=== PATIENT | female | born 1950 | race Caucasian/White ===

== ENCOUNTER 2023-11-30 10:29 | Day surgery (SDC) | payer MEDICARE, BC, SELFPAY ==
[2023-11-30] VITALS (15 sets, daily range): BP systolic 102–146; BP diastolic 43–107; PULSE 71–91; RESP 12–18; TEMP 36.3–37.2; O2SAT 93–98; BMI 37.7
--- NOTE | 2023-11-30 10:36 | PM.IMHP1 ---
Hospitalist- H&P: HPI History of Present Illness Date Seen: 12/06/23 Chief complaint: Appendectomy Narrative: ADMISSION HISTORY AND PHYSICAL - HOSPITALIST Chief Complaint: acute appy HPI: Patient is a 73-year-old recent with a significant medical history of insulin-dependent diabetes, coronary artery disease, ALEXI treated with CPAP and hypertension who reports mild intermittent right lower quadrant pain over the last 2 years, never severe enough to seek medical attention. However in the last few days the pain has returned and is more intense. She went to see her PCP yesterday, Dr. Warren. He ordered labs and a CT of her abdomen and pelvis. The CT abdomen pelvis was done this morning and those results were communicated from Dr. Warren to our general surgeon Dr. Santizo. Evidence of acute early appendicitis noted on CT. CT also showed mild fatty liver and stable pulmonary nodule. Patient states that she slept pretty good overnight. No fever, no vomiting, no nausea. No chest pain. No diaphoresis. No acute shortness of breath. She ate lasted about 11:00 p.m. last night. She did not take any morning meds. CT abdomen pelvis with contrast done today 11/30/2023 IMPRESSION: Acute tip appendicitis. No perforation. No calcified appendicolith. From Dr. Warren on 11/29/2023: Ms. Torres is a 73 y.o. female presents today with right flank pain. She reports having perhaps 3 episodes per year over the past 2 years. This episode began Sunday, 4 days ago. Sunday was the worst day, and it has gradually improved since then. Now describes a dull ache diffusely in the right flank area. Pain will seem to radiate towards the right inguinal area at times. Provoked by movement. Relieved somewhat by sitting quietly. Also has had a feeling of muscle spasms in the right lateral gluteal area. No fever, sweats, or chills. Has had mild nausea but no vomiting. No diarrhea or constipation. No blood in her stools or black tarry stools. No urinary tract symptoms. No blood in her urine. 11/28 labs at [facility]: Total white blood cell count 11.8. Hemoglobin 10.9. Normal platelets. Complete metabolic panel is still pending from clinic visit yesterday Urine is clear with small blood and trace LE. Culture is pending. Creatinine 1.3 CODE STATUS: FULL CODE EMERGENCY CONTACT PLAN: Primary Contact Name Dani Torres Rel To Pat Son CELL Also daughter, Melanie Britton, is bedside this morning I've updated the [facility], medications and allergies in the [facility] tabs. INVESTIGATIONS: LABS/MICRO/ECG/IMAGING Preop ECG Preop one-view chest x-ray Preop labs REVIEW OF SYSTEMS: 12-point ROS completed with patient and negative unless otherwise stated in HPI or below. PHYSICAL EXAM: CONSTITUTIONAL: Conversive, good historian. A/O. Knows setting and context. No acute distress. VITAL SIGNS: see record. HEENT: Normocephalic, atraumatic. PERRL, EOMI, conjunctivae pink, no scleral icterus. Ears and nose externally normal. Pharynx normal. NECK: No JVD. No carotid bruit, no thyromegaly, no adenopathy. CHEST: Clear to auscultation bilaterally HEART: S1 and S2 normal. No harsh murmurs. Edema 1+ ABDOMEN: Morbidly obese. Mild tenderness to the lateral right quadrant MUSCULOSKELETAL: No gross joint deformity or swelling. NEURO: Cranial nerves intact. Grossly intact. No asymmetric findings. SKIN: No rashes, petechiae, concerning changes PSYCHIATRIC: Euthymic. ADMIT TO MEDSURG: FLOOR CARE DVT: SCDs GI: NPO, advanced diet after surgery as tolerated and per surgery orders Time spent: Today I spent 75 minutes seeing the patient, discussing the patient with ER staff, reviewing [facility] and [facility] notes/diagnostics, discussing the care plan with our care time that includes social work, PT/OT, pharmacy, RT, senior care and documenting my impressions and plan in the medical record. [facility] Medical History (Updated 11/30/23 @ 11:11 by Marissa Nash MD) CKD (chronic kidney disease) stage 3, GFR 30-59 ml/min ?N18.30 - Chronic kidney disease, stage 3 unspecified (ICD-10) Fatty liver ?K76.0 - Fatty (change of) liver, not elsewhere classified (ICD-10) HTN (hypertension) ?I10 - Essential (primary) hypertension (ICD-10) Morbid obesity with BMI of 40.0-44.9, adult ?E66.01 - Morbid (severe) obesity due to excess calories (ICD-10) ?Z68.41 - Body mass index [BMI] 40.0-44.9, adult (ICD-10) Hyperlipidemia ?E78.5 - Hyperlipidemia, unspecified (ICD-10) Gout ?M10.9 - Gout, unspecified (ICD-10) Nephrolithiasis ?N20.0 - Calculus of kidney (ICD-10) 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, with long-term current use of insulin ?E08.22 - Diabetes mellitus due to underlying condition with diabetic chronic kidney disease (ICD-10) ?Z79.4 - intermodal truck driver (current) use of insulin (ICD-10) Nickel allergy ?Z91.09 - Other allergy status, other than to drugs and biological substances (ICD-10) ALEXI (obstructive sleep apnea) ?G47.33 - Obstructive sleep apnea (adult) (pediatric) (ICD-10) Migraine ?G43.909 - Migraine, unspecified, not intractable, without status migrainosus (ICD-10) Surgical History (Updated 11/30/23 @ 11:11 by Marissa Nash MD) History of left heart catheterization ?Z98.890 - Other specified postprocedural states (ICD-10) History of heart artery stent ?Z95.5 - Presence of coronary angioplasty implant and graft (ICD-10) H/O wisdom tooth extraction ?K08.409 - Partial loss of teeth, unspecified cause, unspecified class (ICD-10) H/O cystoscopy ?Z98.890 - Other specified postprocedural states (ICD-10) H/O arthroscopy of shoulder ?Z98.890 - Other specified postprocedural states (ICD-10) History of bilateral tubal ligation ?Z98.51 - Tubal ligation status (ICD-10) Family History (Updated 11/30/23 @ 11:13 by Marissa Nash MD) Daughter Breast cancer Mother Diabetes Father Diabetes Heart disease Sister Diabetes Brother Heart disease Social History (Updated 11/30/23 @ 11:14 by Marissa Nash MD) Narrative: 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 Son still farms the land. in May 24. Has seven children. nonsmoker since early . rare beer. What is your current living situation?: I presently have a place to live Problems where you live: no known problems Problems where you live details: n/a In the past 12 months, utilities in danger of being shut off: no In past 12 months, lack of transportation kept you from medical appts, meetings, work, or getting things needed for daily living: no In the past 12 mos, have been you worried that your food would run out before you had money to buy more?: never true In the past 12 mos, the food you bought just didn't last and you didn't have money to buy more?: never true Highest level of school completed/degree received: Associate degree: academic program Smoking Status: Former smoker Do you use any of these nicotine containing products: None How often do you have a drink containing alcohol: 2-4 times a month Alcohol type: beer How many standard drinks containing alcohol do you have on a typical day: 1 or 2 How often do you have six or more drinks on one occasion: Never AUDIT-C Alcohol total score: 2 Non-prescribed substance use: denies use Caffeine: No How often does anyone, including family, friends and others, physically hurt you: never How often does anyone, including family, friends and others, insult or talk down to you: never How often does anyone, including family, friends and others, threaten you with harm: never How often does anyone, including family, friends and others, scream or curse at you: never service: No Meds Home Medications and Allergies Home Medications ?Medication ?Instructions ?Recorded ?Confirmed ?Type acetaminophen 325 mg tablet 325 - 650 mg PO Q6H PRN pain 11/30/23 11/30/23 History (Pharbetol) aspirin 81 mg tablet,delayed 81 mg PO DAILY 11/30/23 11/30/23 History release (Adult Aspirin Regimen) cetirizine 10 mg tablet (24Hour 10 mg PO DAILY PRN 11/30/23 11/30/23 History Allergy) cholecalciferol (vitamin D3) 50 50 mcg PO DAILY 11/30/23 11/30/23 History mcg (2,000 unit) tablet cyanocobalamin (vitamin B-12) 1,000 mcg PO DAILY 11/30/23 11/30/23 History 1,000 mcg tablet febuxostat 80 mg tablet 80 mg PO DAILY 11/30/23 11/30/23 History furosemide 20 mg tablet 20 mg PO QAM 11/30/23 11/30/23 History ibuprofen 600 mg tablet (IBU) 600 mg PO Q6H PRN pain 11/30/23 11/30/23 History insulin glargine 100 unit/mL 100 unit subcut BID 11/30/23 11/30/23 History subcutaneous solution (Lantus U-100 Insulin) lisinopril 20 mg tablet 20 mg PO DAILY 11/30/23 11/30/23 History metformin 1,000 mg tablet 1,000 mg PO BIDWM 11/30/23 11/30/23 History metoprolol succinate 25 mg 25 mg PO DAILY 11/30/23 11/30/23 History tablet,extended release 24 hr nitroglycerin 0.4 mg sublingual 0.4 mg sublingual Q5M PRN 11/30/23 11/30/23 History tablet potassium citrate 10 mEq (1,080 20 meq PO DAILY 11/30/23 11/30/23 History mg) tablet,extended release rosuvastatin 20 mg tablet 20 mg PO HS 11/30/23 11/30/23 History Allergies Allergy/AdvReac Type Severity Reaction Status Date / Time allopurinol Allergy Unknown Unverified 11/30/23 10:39 atorvastatin AdvReac Intermediate Unverified 11/30/23 10:39 glipizide AdvReac Intermediate Unverified 11/30/23 10:39 latex AdvReac Intermediate Unverified 11/30/23 10:39 nickel AdvReac Intermediate Unverified 11/30/23 10:39 Assessment and Plan Assessment and plan (1) Acute appendicitis: Problem comment: -Dr. Santizo accepting direct admit for lap appy 11/30/23 CT abdomen pelvis with contrast done today 11/30/23 IMPRESSION: Acute tip appendicitis. No perforation. No calcified appendicolith. Status: Acute (2) CAD (coronary artery disease): Problem comment: -EKG on admission reviewed -2015 - chest pain/abnl stress test. Mid LAD lesion - s/p 1 REGINE -mild to moderate disease in distal cardiac vessels -daily asp, beta rey, statin, acei -stress echo in August 2022 done for [facility]MENTA Final Impressions: 1. Technically limited exam despite the use of contrast. Test sensitivity reduced by image quality. 2. See separate report for stress EKG interpretation. 3. Normal stress echocardiogram without inducible ischemia by imaging. 4. With exercise, the LV end-systolic dimension decreased and LVEF increased appropriately. 5. Normal blood pressure and heart rate response to exercise. Target heart rate was achieved. 6. Reduced functional status for age. Able to reach target HR within 2 minutes of exercise [total duration 2 minutes and 8 seconds]. 7. Baseline LVEF 55-60%. 8. No significant valvular abnormalities by limited Doppler evaluation [very limited evaluation]. 9. During stress exam the patient developed shortness of breath. Status: Acute (3) 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, with long-term current use of insulin: Problem comment: -A1C 5.7 (Jul 2023) -Creatinine 1.3 (October 2023) baseline is 1.1 - 1.5. (GFR 40's) -metformin and insulin (100 units Lantus BID) (will hold metformin perioperatively) Status: Acute (4) ALEXI (obstructive sleep apnea): Problem comment: wears CPAP Status: Acute (5) CKD (chronic kidney disease) stage 3, GFR 30-59 ml/min: Problem comment: 11/29/23 - Creat 1.5 Status: Acute (6) HTN (hypertension): Problem comment: -home regimen: lisinopril, metoprololol Status: Acute (7) COPD (chronic obstructive pulmonary disease): Problem comment: -CXR reviewed upon admission -hasn't smoked in 30 years -no COPD specific meds Status: Acute (8) Morbid obesity with BMI of 40.0-44.9, adult: Status: Acute (9) Fatty liver: Status: Acute
--- NOTE | 2023-11-30 10:44 | CRLHL7_ITS ---
For Patients: As a result of the Cures Act, medical imaging exams and procedure reports are released immediately into your electronic medical record. You may view this report before your referring provider. If you have questions, please contact your health care provider. INDICATION: PRE OP PORTABLE CHEST TECHNIQUE: Chest 1 view COMPARISON: None FINDINGS: Cardiovascular and mediastinum: Mild tortuosity distal thoracic aorta. Lungs and pleural spaces: Lungs are clear. No sign of infiltrate or mass. No sign of pleural effusion. No pneumothorax. Bones and soft tissues: Mild degenerative changes both shoulders. IMPRESSION: No acute findings. Dictated by Mtich Piper MD @ 12/03/2023 9:55:29 AM (Electronically Signed)
[2023-11-30 11:13] LABS: HCO3 VBG 28 mmol/L (21-28); PCO2 VBG 50 mmHG (40-50); PO2 VBG 30.6 mmHG (25-47); pH VBG 7.356 (7.32-7.43)
[2023-11-30 11:14] LABS: Basophils Absolute Auto 0.01 K/uL (0.00-0.30); Basophils Percent Auto 0.1 % (0.0-3.0); Eosinophils Absolute Auto 0.19 K/uL (0.00-0.50); Eosinophils Percent Auto 2.1 % (0.0-7.0); Hematocrit 34.3 % (33.0-51.0); Hemoglobin* 10.7 gm/dL (12.0-16.0); Immature Granulocytes Abs Auto 0.05 K/uL (0.00-0.30); Immature Granulocytes Pct Auto 0.5 %; Lymphocytes Percent Auto 22.7 % (20-44); Mean Corpuscular HGB Conc 31 gm/dL (32-36); Mean Corpuscular Hemoglobin 28 pg (26-34); Mean Corpuscular Volume 89 fL (80-100); Monocytes Percent Auto 9.1 % (0.0-11.0); Neutrophils Absolute Auto 6.07 K/uL (1.7-7.0); Neutrophils Percent Auto 65.5 % (42.0-72.0); Platelet Count* 212 K/uL (140-440); RDW Coefficient of Variation % 13.8 % (11.5-15.5); Red Blood Count 3.86 m/uL (4.00-5.20); White Blood Count* 9.26 K/uL (4.50-11.00)
[2023-11-30 11:16] LABS: Slide Review Reflex No
[2023-11-30 11:37] LABS: Albumin* 4.7 g/dL (3.3-5.0); Chloride* 107 mmol/L (96-114)
[2023-11-30 11:38] LABS: Potassium* 4.8 mmol/L (3.6-5.1); Sodium* 142 mmol/L (135-149)
[2023-11-30 11:39] LABS: INR 1.06 (0.91-1.10); Prothrombin Time 14.5 Seconds
[2023-11-30 11:40] LABS: Estimated Glomerular Filt Rate 60 ml/min
[2023-11-30 11:41] LABS: Alanine Aminotransferase* 35 U/L (4-35); Alkaline Phosphatase* 73 U/L (40-150); Anion Gap 6 mEq/L (7-15); Aspartate Amino Transferase* 49 U/L (12-35); Bilirubin Total* 0.6 mg/dL (0.1-1.5); Blood Urea Nitrogen* 27 mg/dL (7-30); Calcium* 9.7 mg/dL (8.4-10.6); Carbon Dioxide* 29 mmol/L (20-32); Glucose* 76 mg/dL (60-115); Lipase* 57 U/L (23-300); Total Protein* 7.6 g/dL (6.0-8.3)
[2023-11-30 11:43] LABS: C Reactive Protein* 1.7 mg/dL (0.5-1.0)
[2023-11-30 11:45] LABS: Hemoglobin A1C* 7.7 % (0-5.6)
[2023-11-30 11:53] LABS: Troponin I* 0.01 ng/mL (0.01-0.04)
[2023-11-30 11:58] LABS: Procalcitonin* 0.22 ng/mL (<0.50)
[2023-11-30 11:59] LABS: NT Pro B Type NatriureticPept* 40 pg/mL
[2023-11-30] MEDS: PIPERACILLIN/TAZOBACTAM 3.375 GM in 0.9 % SODIUM CHLORIDE Mini-bag 100 ML IVPB (12:23)
[2023-11-30] MEDS: DEXTROSE 50 % SYRINGE IVP (13:29)
[2023-11-30] MEDS: LACTATED RINGERS 1000 ML 1,000 ML 75 ML IV (13:38)
[2023-11-30] MEDS: 5 % DEXTROSE/0.9% SOD CHLORIDE 1,000 ML 75 ML IV (13:50)
--- NOTE | 2023-11-30 14:51 | PC.NURSE ---
End of Shift: Patient admitted to med surg, then went to the OR at roughly 1400. VSS, afebrile. Patient denies pain. Blood sugar was taken approximately 1300 which showed she was at 56, gave her 12.5mg of D50, rechecked her blood sugar 15 minutes later, which then showed she was at 106.
--- NOTE | 2023-11-30 15:00 | W.ANESCHARGE ---
Anesthesia Charges Start Date/Time Anesthesia Start Date: 11/30/23 Anesthesia Start Time: 14:11 Stop Date/Time Anesthesia Stop Date: 11/30/23 Anesthesia Stop Time: 15:26 Summary Extremes of Age - Over 70 or under 1: MDA
[2023-11-30] MEDS: BUPIVACAINE 0.25% 30 ML INJECTION (15:06)
--- NOTE | 2023-11-30 15:40 | W.ANESCHARGE ---
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
--- NOTE | 2023-11-30 15:51 | P.GSCN_ITS ---
History of Present Illness Consult details Date Seen: 11/30/23 Consult date: 11/30/23 Narrative: The patient is a 73-year-old female who presented to clinic yesterday with right-sided abdominal pain. She stated that approximately 5 days ago she developed an ache on her right side. Sunday she noted that it was worse with standing. It became somewhat better however it returned the following day. She had some nausea, however she states that her daily potassium makes her nauseated so she thought it was related to that. She has not had any fevers. She states that it is worse with movement. She has had no urinary symptoms or change in bowel habits. Since the pain persisted she went in to be seen. She was found to have an elevated white blood cell count at 11.8. Because of her late in the day visit, a CT scan was ordered for this morning. This came back showing appendicitis. She was admitted to the hospital for appendectomy. Upon further thought, she thinks that she may have had symptoms like this previously. [facility] Medical History (Updated 11/30/23 @ 11:11 by Marissa Nash MD) CKD (chronic kidney disease) stage 3, GFR 30-59 ml/min ?N18.30 - Chronic kidney disease, stage 3 unspecified (ICD-10) Fatty liver ?K76.0 - Fatty (change of) liver, not elsewhere classified (ICD-10) HTN (hypertension) ?I10 - Essential (primary) hypertension (ICD-10) Morbid obesity with BMI of 40.0-44.9, adult ?E66.01 - Morbid (severe) obesity due to excess calories (ICD-10) ?Z68.41 - Body mass index [BMI] 40.0-44.9, adult (ICD-10) Hyperlipidemia ?E78.5 - Hyperlipidemia, unspecified (ICD-10) Gout ?M10.9 - Gout, unspecified (ICD-10) Nephrolithiasis ?N20.0 - Calculus of kidney (ICD-10) 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, with long-term current use of insulin ?E08.22 - Diabetes mellitus due to underlying condition with diabetic chronic kidney disease (ICD-10) ?Z79.4 - exterminator helper termite (current) use of insulin (ICD-10) Nickel allergy ?Z91.09 - Other allergy status, other than to drugs and biological substances (ICD-10) ALEXI (obstructive sleep apnea) ?G47.33 - Obstructive sleep apnea (adult) (pediatric) (ICD-10) Migraine ?G43.909 - Migraine, unspecified, not intractable, without status migrainosus (ICD-10) Surgical History (Updated 11/30/23 @ 11:11 by Marissa Nash MD) History of left heart catheterization ?Z98.890 - Other specified postprocedural states (ICD-10) History of heart artery stent ?Z95.5 - Presence of coronary angioplasty implant and graft (ICD-10) H/O wisdom tooth extraction ?K08.409 - Partial loss of teeth, unspecified cause, unspecified class (ICD- 10) H/O cystoscopy ?Z98.890 - Other specified postprocedural states (ICD-10) H/O arthroscopy of shoulder ?Z98.890 - Other specified postprocedural states (ICD-10) History of bilateral tubal ligation ?Z98.51 - Tubal ligation status (ICD-10) Family History (Updated 11/30/23 @ 11:13 by Marissa Nash MD) Daughter Breast cancer Mother Diabetes Father Diabetes Heart disease Sister Diabetes Brother Heart disease Social History (Updated 11/30/23 @ 11:14 by Marissa Nash MD) Narrative: Lives on a farm in [place]. Son still farms the land. in May 24. Has seven children. nonsmoker since early . rare beer. What is your current living situation?: I presently have a place to live Problems where you live: no known problems Problems where you live details: n/a In the past 12 months, utilities in danger of being shut off: no In past 12 months, lack of transportation kept you from medical appts, meetings, work, or getting things needed for daily living: no In the past 12 mos, have been you worried that your food would run out before you had money to buy more?: never true In the past 12 mos, the food you bought just didn't last and you didn't have money to buy more?: never true Highest level of school completed/degree received: Associate degree: academic program Smoking Status: Former smoker Do you use any of these nicotine containing products: None How often do you have a drink containing alcohol: 2-4 times a month Alcohol type: beer How many standard drinks containing alcohol do you have on a typical day: 1 or 2 How often do you have six or more drinks on one occasion: Never AUDIT-C Alcohol total score: 2 Non-prescribed substance use: denies use Caffeine: No How often does anyone, including family, friends and others, physically hurt you : never How often does anyone, including family, friends and others, insult or talk down to you: never How often does anyone, including family, friends and others, threaten you with harm: never How often does anyone, including family, friends and others, scream or curse at you: never service: No Meds Home Medications and Allergies Home Medications ?Medication ?Instructions ?Recorded ?Confirmed ?Type acetaminophen 325 mg tablet 325 - 650 mg PO Q6H PRN pain 11/30/23 11/30/23 History (Pharbetol) aspirin 81 mg tablet,delayed 81 mg PO DAILY 11/30/23 11/30/23 History release (Adult Aspirin Regimen) cetirizine 10 mg tablet (24Hour 10 mg PO DAILY PRN 11/30/23 11/30/23 History Allergy) cholecalciferol (vitamin D3) 50 50 mcg PO DAILY 11/30/23 11/30/23 History mcg (2,000 unit) tablet cyanocobalamin (vitamin B-12) 1,000 mcg PO DAILY 11/30/23 11/30/23 History 1,000 mcg tablet febuxostat 80 mg tablet 80 mg PO DAILY 11/30/23 11/30/23 History furosemide 20 mg tablet 20 mg PO QAM 11/30/23 11/30/23 History ibuprofen 600 mg tablet (IBU) 600 mg PO Q6H PRN pain 11/30/23 11/30/23 History insulin glargine 100 unit/mL 100 unit subcut BID 11/30/23 11/30/23 History subcutaneous solution (Lantus U-100 Insulin) lisinopril 20 mg tablet 20 mg PO DAILY 11/30/23 11/30/23 History metformin 1,000 mg tablet 1,000 mg PO BIDWM 11/30/23 11/30/23 History metoprolol succinate 25 mg 25 mg PO DAILY 11/30/23 11/30/23 History tablet,extended release 24 hr nitroglycerin 0.4 mg sublingual 0.4 mg sublingual Q5M PRN 11/30/23 11/30/23 History tablet potassium citrate 10 mEq (1,080 20 meq PO DAILY 11/30/23 11/30/23 History mg) tablet,extended release rosuvastatin 20 mg tablet 20 mg PO HS 11/30/23 11/30/23 History Allergies Allergy/AdvReac Type Severity Reaction Status Date / Time allopurinol Allergy Unknown Unverified 11/30/23 10:39 atorvastatin AdvReac Intermediate Unverified 11/30/23 10:39 glipizide AdvReac Intermediate Unverified 11/30/23 10:39 latex AdvReac Intermediate Unverified 11/30/23 10:39 nickel AdvReac Intermediate Unverified 11/30/23 10:39 Exam Narrative: Exam Narrative: General appearance: Alert, cooperative, and in no distress Eyes: PERRLA, eye lids clear, and sclera white HENT Head: Normocephalic Ears: External ears normal Pulmonary: Breathing nonlabored on room air Cardiovascular Heart: Regular rate Extremities: warm and well perfused Gastrointestinal Abdominal: Protuberant. No scars. She is mildly tender without rebound in the right lower/mid abdomen. No peritonitis Musculoskeletal: Extremities: Upper: Both upper extremities have normal joint range of motion and intact strength. Lower: Both lower extremities have normal joint range of motion and intact strength. Skin: Normal skin color, texture, and turgor. Neurologic: No focal deficits Psychiatric: Alert, oriented, cooperative, normal affect. Const: Vital Signs, click to edit/add: Vital Signs - 24 hr 11/30/23 10:39 11/30/23 10:39 11/30/23 10:39 Temperature 99.0 F 99.0 F Pulse Rate Pulse Rate [Left P ulse Oximeter] 91 91 Respiratory Rate 18 18 18 Blood Pressure Blood Pressure [Le ft Arm] 142/68 H 142/68 H Pulse Oximetry 98 98 98 Oxygen Delivery Me thod Room Air Room Air Room Air 11/30/23 10:39 11/30/23 10:40 11/30/23 15:21 Temperature 98.2 F Pulse Rate 89 Pulse Rate [Left P ulse Oximeter] Respiratory Rate 18 14 Blood Pressure 139/68 Blood Pressure [Le ft Arm] Pulse Oximetry 98 98 93 Oxygen Delivery Me thod Room Air Room Air 11/30/23 15:25 11/30/23 15:30 11/30/23 15:35 Temperature 98.2 F 98.2 F 98.2 F Pulse Rate 86 86 80 Pulse Rate [Left P ulse Oximeter] Respiratory Rate 12 12 12 Blood Pressure 134/53 L 134/53 L 127/48 L Blood Pressure [Le ft Arm] Pulse Oximetry 94 94 93 Oxygen Delivery Me thod Room Air Room Air Room Air 11/30/23 15:40 11/30/23 15:45 Temperature 98.2 F 98.2 F Pulse Rate 75 71 Pulse Rate [Left P ulse Oximeter] Respiratory Rate 12 12 Blood Pressure 110/43 L 102/83 Blood Pressure [Le ft Arm] Pulse Oximetry 93 93 Oxygen Delivery Me thod Room Air Room Air Results Labs Labs: Abnormal lab results 11/30/23 Range/Units 11:03 RBC 3.86 L (4.00-5.20) m/uL Hgb 10.7 L (12.0-16.0) gm/dL MCHC 31 L (32-36) gm/dL Anion Gap 6 L (7-15) mEq/L Hemoglobin A1c 7.7 H (0-5.6) % AST 49 H (12-35) U/L C-Reactive Protein 1.7 H (0.5-1.0) mg/dL Diabetes panel 11/30/23 Range/Units 11:03 Sodium 142 (135-149) mmol/L Potassium 4.8 (3.6-5.1) mmol/L Chloride 107 (96-114) mmol/L Carbon Dioxide 29 (20-32) mmol/L BUN 27 (7-30) mg/dL Creatinine 1.0 (0.5-1.5) mg/dL Glucose 76 (60-115) mg/dL Hemoglobin A1c 7.7 H (0-5.6) % Calcium 9.7 (8.4-10.6) mg/dL AST 49 H (12-35) U/L ALT 35 (4-35) U/L Alkaline Phosphatase 73 (40-150) U/L Total Protein 7.6 (6.0-8.3) g/dL Albumin 4.7 (3.3-5.0) g/dL Calcium panel 11/30/23 Range/Units 11:03 Calcium 9.7 (8.4-10.6) mg/dL Albumin 4.7 (3.3-5.0) g/dL Pituitary panel 11/30/23 Range/Units 11:03 Sodium 142 (135-149) mmol/L Potassium 4.8 (3.6-5.1) mmol/L Chloride 107 (96-114) mmol/L Carbon Dioxide 29 (20-32) mmol/L BUN 27 (7-30) mg/dL Creatinine 1.0 (0.5-1.5) mg/dL Glucose 76 (60-115) mg/dL Calcium 9.7 (8.4-10.6) mg/dL Adrenal panel 11/30/23 Range/Units 11:03 Sodium 142 (135-149) mmol/L Potassium 4.8 (3.6-5.1) mmol/L Chloride 107 (96-114) mmol/L Carbon Dioxide 29 (20-32) mmol/L BUN 27 (7-30) mg/dL Creatinine 1.0 (0.5-1.5) mg/dL Glucose 76 (60-115) mg/dL Calcium 9.7 (8.4-10.6) mg/dL Total Bilirubin 0.6 (0.1-1.5) mg/dL AST 49 H (12-35) U/L ALT 35 (4-35) U/L Alkaline Phosphatase 73 (40-150) U/L Total Protein 7.6 (6.0-8.3) g/dL Albumin 4.7 (3.3-5.0) g/dL All other labs normal. Imaging Abdomen CT scan report/results: report reviewed and image reviewed Additional studies: INDICATION: Right lower quadrant abdominal pain. COMPARISON: 12/13/2021 TECHNIQUE: CT of the abdomen and pelvis with intravenous contrast. Multiplanar axial, coronal, and sagittal reformats were reconstructed. Contrast: 100 mL Omnipaque 350. FINDINGS: Lung bases: 6 millimeter nodule in the right middle lobe is stable. Punctate calcified granuloma along the right major fissure. No new or worrisome nodule. Liver: Mild diffuse hepatic steatosis. The liver is not enlarged. Gallbladder and bile ducts: Normal gallbladder. No bile duct dilation. Pancreas: Normal. Spleen: Normal. Adrenal glands: Normal. Kidneys: Normal parenchyma. No cyst or solid mass. No calculi. No urinary tract dilation. Urinary bladder: Normal. Pelvis: No cyst or mass. Vessels: Moderate to heavy atherosclerotic vascular calcifications. No aortic aneurysm. Bowel: The tip of the appendix is dilated with some adjacent inflammatory stranding. No adjacent fluid, phlegmon, or abscess. No calcified appendicolith. The remainder of the bowel has a normal course and caliber. No dilated or inflamed bowel. Diverticulosis without diverticulitis.. Moderate stool burden. Lymph nodes: No adenopathy. Peritoneum: No ascites. Abdominal wall: Fat containing umbilical hernia. Bones: No fractures. No focal worrisome bone lesions. IMPRESSION: Acute tip appendicitis. No perforation. No calcified appendicolith. Progress Note:A&P Assessment and plan (1) Acute appendicitis: Status: Acute Assessment and Plan: The patient is a 73-year-old female with the following medical comorbidities who has acute appendicitis. We discussed that appendectomy is the preferred treatment for this. This can most often be done laparoscopically. We discussed risks and benefits of the procedure including but not limited to bleeding, need for conversion to open, risk of injury to other structures, need for possible bowel resection, and abscess formation. The patient understands that the risk of abscess is higher if the appendix is perforated. For that reason, we generally keep patient is in the hospital on IV antibiotics until vital signs and white blood cell count had normalized. We also discussed recovery including 2 weeks of lifting restrictions. 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
--- NOTE | 2023-11-30 16:01 | PM.GSPRC ---
Operative Note Date of procedure: 11/30/23 Pre-op diagnosis: Acute appendicitis Post-op diagnosis: Same Type of Procedure: Laparoscopic appendectomy Indications: The patient is a 73-year-old female who presented to her primary care provider with about a week of abdominal pain. This was noted to be in her right lower quadrant. Workup revealed acute appendicitis of the appendiceal tip without evidence of perforation. I recommended appendectomy. The patient agreed to proceed after discussion of risks, benefits and recovery. Procedure Description: After discussing the risks and benefits of the procedure, the patient signed informed consent.? The operative site was marked and the patient was brought to the operating room and placed on the operating table in supine position.? Care was taken to pad the patient's pressure points.?? The patient was then intubated by anesthesia.?? The operative site was then prepped and draped in the usual sterile fashion.? A time-out was then performed. Entrance to the abdomen was obtained via a 5 mm optical trocar in the left upper quadrant. The abdomen was insufflated and briefly surveyed for any signs of injury. There were none. A 12 mm port was placed in the left lateral abdomen as well as a 5 mm port in the left lower quadrant. The patient had a small fat containing umbilical hernia. The omentum in the hernia was reduced to provide access to the right side of the abdomen. The patient was then placed in Trendelenburg position with the right side up. The small bowel was gently moved out of the way and the appendix was in view. The tip was inflamed. There was no sign of perforation. The appendix was grasped and pulled into view. The patient's habitus made it difficult to visualize the appendiceal base. Therefore, I used a LigaSure to divide the mesoappendix. Once this was done I was able to better visualize the appendix. I then was able to take the appendiceal mesentery dissection down to the appendiceal base. An Endo-YFN purple load stapler was then used to transect the appendix at its base. The staple line was inspected for bleeding. There was none. The appendix was then removed from the abdomen using an Endo-Catch bag. The specimen was sent to pathology. The 12 mm port site fascia was closed with 0 Vicryl. The abdomen was desufflated and the ports were removed. The skin was then closed with absorbable subcuticular suture. Sterile dressings were then applied. Instrument sponge and needle counts were correct at the end of the case. The patient was then woken and transported to the PACU in stable condition. ? The patient tolerated the procedure well. Findings: Acute non perforated appendicitis. Anesthesia: GETA Surgeon: Lakeisha Santizo MD Estimated blood loss (mL): 5 Specimen: Appendix Condition: stable Disposition: PACU
--- NOTE | 2023-11-30 16:01 | SUR.PHASEI ---
patient met discharge criteria per anesthesia
--- NOTE | 2023-11-30 19:26 | PC.NURSE ---
Nursing Care Hours: [id number] Pt this shift arrived from PACU 1556, awake and oriented. C/o pain 07/11. VSS. IV patent. Advanced diet to regular, tolerated meal tray. Per pt, passing gas. Up with SB assist to bathroom. Pt brought home Lantus in prefilled un-labeled syringes and states she takes them BID with meals. Assembler Camper discussed with pt that it is against policy to administer unlabeled prefilled medication and there is no vial available to draw from. Pt suggested to medical technical writer just leave them on the table and walk out. Assembler Camper discussed concerns and risks with pt, stating not wanting to put professional licences on the line as well as safety for the pt given blood sugar 125 and pt has a large dose of insulin. Pt refusing the types of insulin hospital carries because she states they mess up my A1C. Assembler Camper and hospitalist discussed options with pt in room with adult daughter present. Options were to have someone picker tender the labeled vial from home or since pt meets discharge requirements per surgeon order, pt could discharge and take home medications at home. Pt was displeased but remained calm. Assembler Camper offered therapeutic communication, validating frustrations but reiterating the policy is in place for patient and nurse safety. Patient advocate card given to patient. After pt and daughter discussed privately, pt decided to be discharged. IV removed. Discharge paperwork went over with pt and daughter. Pt ambulated off unit in stable condition.
== END 2023-11-30 19:09 | disposition home or self-care (01) | DRG 398 ==
LOC: OR 10:31 → MEDSURG 10:34 → OR 10:58 → MEDSURG 11:31
PROVIDERS: Family Medicine; PCP Family Medicine; Visit Provider Surgery
PROC: 0DTJ4ZZ Resection of Appendix, Percutaneous Endoscopic Approach (ICD-10-PCS; CPT 44970; principal; 2023-11-30 12:45)
DX: K35.80 Unspecified acute appendicitis (principal); R10.31 Right lower quadrant pain; Z68.41 Body mass index [BMI] 40.0-44.9, adult; G47.33 Obstructive sleep apnea (adult) (pediatric); Z79.4 Long term (current) use of insulin; I12.9 Hypertensive chronic kidney disease with stage 1 through stage 4 chronic kidney disease, or unspecified chronic kidney disease; E11.22 Type 2 diabetes mellitus with diabetic chronic kidney disease; N18.30 Chronic kidney disease, stage 3 unspecified; E66.01 Morbid (severe) obesity due to excess calories; J44.9 Chronic obstructive pulmonary disease, unspecified; K76.0 Fatty (change of) liver, not elsewhere classified; I25.10 Atherosclerotic heart disease of native coronary artery without angina pectoris; E78.5 Hyperlipidemia, unspecified
CPT/HCPCS: 44970; 00840; 36415; 71045; 80053; 82803; 82962; 83036; 83690; 83880; 84145; 84484; 85025; 85610; 86140; 88304; 93005; 99100; J0665; J1100; J1885; J2371; J2405; J2543; J2704; J3010; J3490; J7042; J7120